=== PATIENT | male | born 1965 | race Caucasian/White ===

== ENCOUNTER 2024-12-01 17:32 | Emergency (ER) | payer OTHER, SELFPAY ==
--- OUTSIDE RECORDS SUMMARY | 2024-12-01 17:40 | XMS_ITS | Clinical Summary ---
Author Organization [facility] Address 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 Olecranon bursitis of left elbow 11/25/2017 Resolved Problems Problem Noted Date Diagnosed Date Resolved Date Sebaceous cyst 11/25/2017 11/30/2017 Family History Medical History Relation Name Comments Heart disease Father Hyperlipidemia Father Hypertension Father Diabetes Maternal Aunt Kidney cancer Maternal Aunt Lung cancer Maternal Aunt Diabetes Maternal Grandfather Hyperlipidemia Maternal Grandfather Hypertension Maternal Grandfather Diabetes Maternal Grandmother Hyperlipidemia Maternal Grandmother Hypertension Maternal Grandmother Colon cancer Maternal Uncle Diabetes Maternal Uncle Hypertension Mother Leukemia Mother Lymphoma Mother Stroke Mother Melanoma Paternal Grandfather No Known Problems Paternal Grandmother Relation Name Status Comments Father Maternal Aunt Maternal Grandfather Maternal Grandmother Maternal Uncle Mother Paternal Grandfather Paternal Grandmother Social History Tobacco Use Types Packs/Day Years Used Date Smoking Tobacco: Former Smokeless Tobacco: Current Snuff Alcohol Use Standard Drinks/Week Comments No 0 (1 standard drink = 0.6 oz pur e alcohol) stopped 1991 Sexually Active Control Partners Comments Yes Female Sex and Gender Information Value Date Recorded Sex Assigned at Not on file Legal Sex Male 6:03 PM [employer]ICK [employer] Gender Identity Not on file Sexual Orientation Not on file Last Filed Vital Signs Vital Sign Reading Time Taken Comments Blood Pressure 138/84 04/13/2020 1:34 PM BRICK PO[employer] Pulse 57 04/13/2020 1:34 PM BRICK PO[employer] Temperature 36.9 C (98.5 F) 04/13/2020 1:34 PM BRICK POINTER Respiratory Rate 18 04/13/2020 1:34 PM BRICK POINTER Oxygen Saturation 97% 04/13/2020 1:34 PM BRICK POINTER Inhaled Oxygen Concentration - - Weight 92.1 kg (203 lb) 04/13/2020 1:34 PM BRICK PO[employer] Height 175.3 cm (5' 9) 04/13/2020 1:34 PM BRICK PO[employer] Body Mass Index 29.98 04/13/2020 1:34 PM BRICK POINTER Plan of Treatment Health Maintenance Due Date Last Done Comments Colonoscopy Every 6 Months 1965 Colorectal Cancer Screening Annual FOBT/FIT Test 06/19 Colorectal Cancer Screening Cologuard 1965 Colorectal Cancer Screening Flex Sigmoidoscopy 966 Annual Depression Screening 1976 Annual Physical 1983 Hepatitis C Antibody Screen 1983 DTap/Tdap/Td Vaccines (1 - Tdap) 1984 Colorectal CA Screen 10 Year Colonoscopy 2010 Colorectal Cancer Screening 2010 Pneumococcal Vaccine Age 50+ (1 of 1 - PCV) 2015 Zoster Vaccine (Shingles) (1 of 2) 2015 Influenza Vaccine 01/09/2025 Insurance [employer]
[2024-12-01 17:42] VITALS: BP 131/82; PULSE 100; RESP 16; TEMP 38; O2SAT 98
[2024-12-01 17:56] LABS: EDSTREPNEGPOS1 Negative (Negative)
--- NOTE | 2024-12-01 18:06 | ED_ITS ---
HPI - URI/Sore Throat General Chief Complaint: Upper Respiratory Infection Stated Complaint: Sore Throat/ Left Ear Pain Time Seen by Provider: 12/01/24 17:50 Source: patient and RN notes reviewed Mode of arrival: ambulatory Limitations: no limitations History of Present Illness HPI Narrative: 59-year-old male presents Express Care complaining of fever, left ear pain and sore throat since today. Patient denies any other upper respiratory symptoms, cough, chest pains, difficulty breathing, nausea, vomiting, diarrhea, dizziness, lightheadedness, or any other symptoms. Patient is not take anything [id number]. Patient has a history of high cholesterol. Related Data Home Medications ?Medication ?Instructions ?Recorded ?Confirmed ?Last Taken ?Type atorvastatin 20 mg tablet mg 12/01/24 Unknown History Allergies Allergy/AdvReac Type Severity Reaction Status Date / Time No Known Allergies Allergy Verified 12/01/24 17:45 Review of Systems Review of Systems: CONSTITUTIONAL: Positive for fevers. Negative for chills, or sweats. EYES: Denies visual changes, redness, or discharge. ENT: Denies rhinorrhea, congestion. Positive for sore throat and otalgia. CARDIOVASCULAR: Denies chest pain, palpitations, or edema. RESPIRATORY: Denies cough or dyspnea. GASTROINTESTINAL: Denies abdominal pain, nausea, vomiting, or diarrhea. GENITOURINARY: Denies dysuria or hematuria. SKIN: Denies rash or itching. MUSCULOSKELETAL: Denies back pain, joint pain, or myalgia. NEUROLOGIC: Denies headache, numbness, or weakness. PSYCHIATRIC: Denies anxiety or depression. All other systems reviewed are negative, except as documented in HPI. PMFSH Comments At the time of my signature, I reviewed and agree with the nursing past medical, surgical, social, and family history. There is no relevant family history pertinent to the patient complaint. Exam Narrative: GENERAL: This is a well-nourished, well-developed adult, in no apparent distress. They are non ill-appearing, nontoxic appearing. HEAD: normocephalic, atraumatic. EYES: Sclera clear/white. Conjunctiva normal. Vision is grossly intact. Extraocular movements intact EARS: External ears normal, right auditory canal clear and without drainage, right TM normal without perforation. Left auditory canal erythematous, left TM erythematous, bulging, with suppuration. Hearing grossly intact. NOSE: External nose normal with no obvious nasal discharge, nasal turbinates without redness, no rhinorrhea. THROAT: Mucous membranes moist, posterior pharynx edematous, without erythema or swelling. Uvula midline. Postnasal drip present. NECK: Neck supple, non-tender without lymphadenopathy, masses or thyromegaly. CARDIOVASCULAR: Regular rate and rhythm without murmurs, gallops, or rubs. RESPIRATORY: Clear to auscultation. Breath sounds equal bilaterally. No wheezes, rales, or rhonchi. SKIN: warm, Dry, intact with no suspicious lesions or rash, good texture and turgor. NEURO: awake, alert, and oriented to person, place and time. There were no obvious focal neurologic abnormalities. EXTREMITIES: No joint tenderness, effusion, or edema noted. Course Course Emergency Course: Portions of this record may have been created with voice recognition software Level of Care: Express Care Visit Vital Signs Vital signs: Vital Signs Temperature 100.4 F H 12/01/24 17:42 Pulse Rate 100 12/01/24 17:42 Respiratory Rate 16 12/01/24 17:42 Blood Pressure 131/82 12/01/24 17:42 Pulse Oximetry 98 12/01/24 17:42 Oxygen Delivery Room Air 12/01/24 17:42 Temperature 100.4 F H 12/01/24 17:42 Pulse Rate 100 12/01/24 17:42 Respiratory Rate 16 12/01/24 17:42 Blood Pressure 131/82 12/01/24 17:42 Pulse Oximetry 98 12/01/24 17:42 Oxygen Delivery Room Air 12/01/24 17:42 Reviewed MDM - URI/Sore Throat MDM Narrative Medical decision making narrative: Patient has left-sided otitis media and otitis externa. Given patient's symptoms and fever avoid injury with amoxicillin and ofloxacin ear drops. Rapid strep negative. A throat culture is pending. Discussed physical exam findings. Advised supportive measures and signs/symptoms to go to the ER. Pt is appropriate for outpt treatment and f/u. Differential Diagnosis Differential diagnosis: Likely upper respiratory infection, otitis media, sinusitis, viral infection and pharyngitis Lab Data Attestation: I reviewed the patient's lab results. Labs: Lab Results 12/01/24 Range/Units 17:54 POC Grp A Strep Screen Negative (Negative) Critical Care Time Critical Care Time Critical Care Time: No Discharge Plan Discharge Clinical Impression: Otitis media Qualifiers: Otitis media type: suppurative Chronicity: acute Laterality: left Recurrence: non-recurrent Spontaneous tympanic membrane rupture: without spontaneous rupture Qualified Code(s): H66.002 - Acute suppurative otitis media without spontaneous rupture of ear drum, left ear Otitis externa Qualifiers: Otitis externa type: diffuse Chronicity: acute Laterality: left Qualified Code(s): H60.312 - Diffuse otitis externa, left ear Patient Disposition: Home Condition: Stable Instructions: Antibiotic Form, Ear Infection (ED) Additional Instructions: Take amoxicillin as directed. Use Ofloxacin ear drops as directed Recommend antihistamine such as Zyrtec or Claritin as needed for sinus congestion Flonase nasal spray, 1 spray in each nostril once daily until symptoms improve Symptomatic treatment includes: rest, fluids, and increase humidity of the air at home. Tylenol or ibuprofen as needed for pain. Follow the instructions on the bottle. Please schedule a follow-up visit with your personal physician for further evalu ation and treatment within 3-5days. If your symptoms persist, change or worsen significantly, go to the emergency department for further evaluation. Patient Language: Macedonian Prescriptions: New ofloxacin 0.3 % drops 10 drp LEFT EAR DAILY 7 Days Qty: 10 0RF amoxicillin 875 mg tablet 875 mg PO Q12H 7 Days Qty: 14 0RF No Action atorvastatin 20 mg tablet Follow-up/Referrals: UNKNOWN,DOCTOR [Primary Care Provider] - Time of Disposition: 18:01
== END 2024-12-01 18:07 | disposition home or self-care (01) ==
DX: H66.002 Acute suppurative otitis media without spontaneous rupture of ear drum, left ear (principal); H60.312 Diffuse otitis externa, left ear; E78.00 Pure hypercholesterolemia, unspecified
CPT/HCPCS: 87081; 87880; 99213; G0463